=== PATIENT | female | born 1950 | race American Indian/Alaskan Native ===

== ENCOUNTER 2016-10-09 06:35 | Day surgery (SDC) | payer OTHER ==
[2016-10-06 13:07] VITALS: BMI 41.5
[2016-10-09] MEDS ORDERED: Bupivacaine HCl 0.25% PF (10 ml) Inj ONE ×2 (07:33)
[2016-10-09] MEDS ORDERED: Lidocaine 1% Inj (20ml) ONE (07:33)
[2016-10-09] MEDS ORDERED: ceFAZolin IV 1 gm in Dextrose 0 GM/0 ML BAG IVPB ONE (07:33)
[2016-10-09] MEDS ORDERED: Bupivacaine 0.5% Inj(30mL) ONE (07:36)
[2016-10-09] MEDS ORDERED: Lactated Ringer's 1,000 ML IV ONE ×2 (07:45→08:35)
[2016-10-09] MEDS ORDERED: Propofol 10 mg/ml Inj (20 ML) ONE ×2 (07:50→08:05)
[2016-10-09] MEDS ORDERED: Midazolam 2 MG/2 ML VIAL ONE (07:50)
[2016-10-09] MEDS ORDERED: Dexamethasone 4 mg/1 ml ONE (08:26)
--- NOTE | 2016-10-09 08:38 | PCM.SURG1 ---
Surgeon's Initial Post Op Note - Surgeon's Notes Surgeon: Dr. Yu, DPM Finance Teacher: Dr. Gonzales PGY-2, Dr. Tomlinson PGY-1 Type of Anesthesia: IV Sedation, Local Anesthesia Administered By: Jarek Thomas Pre-Operative Diagnosis: painful right 5th digit hammertoe deformity Operative Findings: see operative report. I: 10cc 1:1 mix 1% Lidocaine plain and 0.5% Marcaine plain, 1cc of 1:1 mix of 0.5% Marcaine and 4 mg Dexamethasone. M: 3-0 Vicryl and 4-0 Prolene Post-Operative Diagnosis: painful right 5th digit hammertoe deformity Operation Performed: Right foot 5th digit arthroplasty Specimen/Specimens Removed: bone Estimated Blood Loss: EBL {In ML}: 1 Blood Products Given: N/A Drains Used: No Drains Post-Op Condition: Good Date of Surgery/Procedure: 10/09/16 Time of Surgery/Procedure: 07:55
[2016-10-09] MEDS ORDERED: Oxycodone/Acetaminophen 5/325 mg Tab PO PRN ×2 (08:39)
[2016-10-09] MEDS ORDERED: HYDROmorphone 0.5 mg/0.5 ml ISec IVP PRN (08:42)
[2016-10-09 08:44] VITALS: TEMP 97
[2016-10-09] MEDS ORDERED: Lactated Ringer's 1,000 ML IV SCH (08:45)
--- NOTE | 2016-10-09 08:51 | CP.PCM.PN ---
Subjective - Date & Time of Evaluation Date of Evaluation: 10/09/16 Time of Evaluation: 08:45 - Subjective Subjective: Podiatry Patient underwent right 5th toe arthroplasty under IV sedation. Residents Ericka Gonzales DPM and Mariana Tomlinson DPM assisted. Patient tolerated the procedure well and left the OR in satisfactory condition and will be discharged when fully reactive and stable. Objective - Vital Signs/Intake and Output Vital Signs (last 24 hours): Temp Pulse Resp BP Pulse Ox 97 F L 74 19 118/65 99 10/09/16 08:35 10/09/16 08:35 10/09/16 08:35 10/09/16 08:35 10/09/16 08:35
[2016-10-09 09:24] VITALS: RESP 16
[2016-10-09 09:50] VITALS: BP 112/53; PULSE 60; O2SAT 97
--- NOTE | 2016-10-10 15:15 | OP ---
PROCEDURE DATE: 10/09/2016 SURGEON: Dr. Rosas Yu C [employer] DEVELOPER: Ericka Gonzales DPM, PGY-2, and Lauren Tomlinson DMD, PGY-1 BUNDLER: Maty Herndon MD ANESTHESIA: IV sedation with local. PREOPERATIVE DIAGNOSIS: Right foot fifth digit hammertoe deformity. POSTOPERATIVE DIAGNOSIS: Right foot fifth digit hammertoe deformity. PROCEDURE: Right fifth digit proximal interphalangeal joint arthroplasty. INDICATIONS: The patient is a 66 years old female with the above diagnoses. The patient has exhausted all conservative treatment at this time and now requests surgical intervention. The patient signed a consent after careful explanation of risks, benefits, complications and alternatives of surgical procedure. No guarantees were given nor implied. PREPARATION: The patient was brought into the operating room and placed on the operating room table in a supine position. A well-padded pneumatic ankle tourniquet was applied to the patient's right ankle. A time-out was performed for identification of the correct patient and procedure. Once IV sedation was achieved a total of 14 mL of 1:1 mix of 1% Lidocaine plain and 0.5% Marcaine plain was given into the 5th metatarsal phalangeal joint area. Right foot was then prepped and draped in a normal sterile manner. The patient's right foot was then exsanguinated and a pneumatic ankle tourniquet was inflated to 250 mmHg and the procedure began. PROCEDURE: Attention was then directed to the fifth digit of the patient's right foot which was noted to be contracted and an approximately 2 cm incision was made on the dorsal aspect of the proximal interphalangeal joint of the second digit in a semi elliptical type orientation. Sharp dissection was carried down. There were deep tissues being careful to identify and retract all vital neurovascular structures. All bleeders were ligated and cauterized. At this time, a transverse tenotomy and capsulotomy was performed to the proximal intraphalangeal joint and the head of the proximal phalanx was then freed up of its capsule and ligamentous attachment. Next, utilizing the sagittal bone saw, the head of the proximal phalanx was resected and passed from the operative field and sent to Pathology. The correction was noted to be excellent. The surgical site was then copiously flushed with normal sterile saline. The tendon was then re-approximated and sutured with 3-0 Vicryl and the skin was then re-approximated and sutured with 4-0 Prolene. POSTOPERATIVE CONDITION: The patient tolerated the anesthesia and procedure well and was escorted to the recovery room with vital signs stable and neurovascular status intact to the right foot. The patient will bear weight as tolerated in a surgical shoe and will follow up with Dr. Yu in his office. Ericka Gonzales DPM CAROL
== END 2016-10-09 10:55 | disposition home or self-care (01) ==
LOC: C.SDS 06:35
PROVIDERS: ATTEND Podiatrist Foot & Ankle Surgery
DX: M20.41 Other hammer toe(s) (acquired), right foot (principal); I10 Essential (primary) hypertension; E11.9 Type 2 diabetes mellitus without complications; E89.0 Postprocedural hypothyroidism; M19.90 Unspecified osteoarthritis, unspecified site; E78.00 Pure hypercholesterolemia, unspecified; G47.33 Obstructive sleep apnea (adult) (pediatric); E66.9 Obesity, unspecified; Z98.84 Bariatric surgery status; Z90.710 Acquired absence of both cervix and uterus; Z98.890 Other specified postprocedural states; Z98.41 Cataract extraction status, right eye; Z98.42 Cataract extraction status, left eye; Z79.82 Long term (current) use of aspirin; Z79.84 Long term (current) use of oral hypoglycemic drugs; Z79.899 Other long term (current) drug therapy
CPT/HCPCS: 28285; 82948; 88304; J2250; J2704; J3010; J7120

== ENCOUNTER 2017-10-26 14:31 | Emergency (ER) | payer OTHER ==
[2017-10-26 14:31] VITALS: BMI 41.5
[2017-10-26 14:39] VITALS: BP 144/82; TEMP 98
--- NOTE | 2017-10-26 14:52 | C.PDOC ---
History Of Present Illness 67 year old female with past medical history of HTN presents to the ER for right sided neck pain. Patient states it started yesterday around 2pm as she is works pushing heavy machinery. She states the pain started more today and she had decreased range of motion. She denies taking anything for the pain. She denies numbness, tingling or radiation of the pain. (Shruthi Miller) Chief Complaint (Nursing): Back Pain Past Medical History - Medical History PMH: Diabetes, HTN, Hypercholesterolemia, Hypothyroidism, Kidney Stones, Pneumonia (2004) Denies: Fractures, Chronic Kidney Disease, Sleep Apnea Surgical History: Family History: States: Unknown Family Hx - Social History Hx Tobacco Use: No Hx Alcohol Use: No Hx Substance Use: No - Immunization History Hx Tetanus Toxoid Vaccination: No Hx Influenza Vaccination: Yes Hx Pneumococcal Vaccination: No Vital Signs: Last Vital Signs Temp 98 F 10/26/17 14:36 Pulse Resp BP 144/82 10/26/17 14:36 Pulse Ox - [facility] Procedures COLONOSCOPY (09/21/13) ESOPHAGOGASTRODUODENOSCOPY [EGD] W/CLOSED BIOPSY (09/21/13) IRRIGATION OF EAR (12/02/14) RADICAL EXCIS SKIN LES (12/15/12) Review Of Systems Constitutional: Negative for: Fever, Chills Cardiovascular: Negative for: Chest Pain, Palpitations Respiratory: Negative for: Shortness of Breath Gastrointestinal: Negative for: Nausea, Vomiting Genitourinary: Negative for: Dysuria Musculoskeletal: Positive for: Neck Pain Neurological: Negative for: Weakness, Numbness Physical Exam - Physical Exam Appears: Well Skin: Normal Color Head: Atraumatic, Normacephalic Eye(s): bilateral: Normal Inspection, PERRL, EOMI Oral Mucosa: Moist Cardiovascular: Rhythm Regular Respiratory: Normal Breath Sounds Back: Other (Right Trapezius Muscle tenderness; decreased neck ROM; tenderness with neck flexion and extension ) Medical Decision Making Medical Decision Making: Patient seen by resident and then evaluated by me. Patient has atraumatic R posterior shoulder pain worse with movement. Tenderness on exam. Presentation consistent with muscle spasm. Given flexeril for pain with improvement of symptoms. Patient is employee and presented during work hours and therefore instructed to follow-up with employee health. (Kathy Myers) Disposition Discussed With : Kathy Myers Doctor Will See Patient In The: ED - Disposition Disposition Time: 14:59 - Disposition Disposition: HOME/ ROUTINE Condition: GOOD Additional Instructions: Follow up with Employee Health Prescriptions: Cyclobenzaprine [Cyclobenzaprine HCl] 10 mg PO QID 10 Days tab Forms: [employer] (Syriac), Work Excuse Print Language: PALAUAN - Clinical Impression Clinical Impression: Trapezius muscle spasm
== END 2017-10-26 15:16 | disposition home or self-care (01) ==
LOC: C.ER 14:31
DX: M62.838 Other muscle spasm (principal)

== ENCOUNTER 2018-04-03 11:04 | Outpatient (CLI) | payer OTHER | END 2018-04-03 11:05 | disposition home or self-care (01) | LOC: C.LAB 11:04 | DX: E03.9 Hypothyroidism, unspecified (principal); E11.69 Type 2 diabetes mellitus with other specified complication; E78.9 Disorder of lipoprotein metabolism, unspecified ==

== ENCOUNTER 2018-05-17 09:00 | Outpatient (CLI) | payer OTHER | END 2018-05-17 09:01 | disposition home or self-care (01) | LOC: C.USIC 09:00 ==

== ENCOUNTER 2018-05-21 08:54 | Outpatient (CLI) | payer OTHER | END 2018-05-21 08:55 | disposition home or self-care (01) | LOC: C.VASC 08:54 ==

== ENCOUNTER 2018-06-02 06:42 | Outpatient (CLI) | payer OTHER | END 2018-06-02 06:43 | disposition home or self-care (01) | LOC: C.LAB 06:42 | DX: E03.9 Hypothyroidism, unspecified (principal) ==

== ENCOUNTER 2018-07-11 06:39 | Outpatient (CLI) | payer OTHER | END 2018-07-11 06:40 | disposition home or self-care (01) | LOC: C.LAB 06:39 | DX: E55.9 Vitamin D deficiency, unspecified (principal); E11.65 Type 2 diabetes mellitus with hyperglycemia; E78.2 Mixed hyperlipidemia; E53.8 Deficiency of other specified B group vitamins ==